=== PATIENT | male | born 1970 | race Caucasian/White ===

== ENCOUNTER 2016-05-03 23:39 | Emergency (ER) | payer OTHER ==
[~2016-05-03] VITALS: Ht 167.6 cm; Wt 108.9 kg
[~2016-05-03 23:39] MED LIST: (NONE) 12.5 MG-1 TAB PO; ATIVAN1 MG PO; BACTROBAN OINT.15 GM TOP; CHERATUSSIN AC118 ML PO; CODEINE PHOSPHA1 TAB PO; CYCLOBENZAPRINE10 M1 PO; CYCLOBENZAPRINE5 M2 PO; FLEXERIL10 MG PO; HYDROXYZINE PAM25 M2 PO; HYDROXYZINE PAM25 MG PO; IBUPROFEN800 M1 PO; IBUPROFEN800 MG PO; KETOROLAC TROME10 M1 PO; LEVSIN-SL0.125 MG SL; LEXAPRO10 M1 PO; LIORESAL 10MG T10 MG PO; LISINOPRIL-HCT1 EACH PO; LORAZEPAM0.5 M1 PO; LORAZEPAM1 MG PO; MEDROL DOSEPAK1 PAC PO; METFORMIN HCL500 MG PO; MOBIC 15MG15 MG PO; MOMETASONE0.05 MG/Ac NASB; MOTRIN 600 MG600 MG PO; NAPROSYN500 M1 PO; PERCOCET 325 MG1 TA2 PO; PREDNISONE10 M2 PO; SEROQUEL XR50 M1 PO; SEROQUEL XR50 MG PO; SEROQUEL50 MG PO; TRAMADOL HCL50 M1 PO; ULTRAM50 M1 PO; ZOFRAN ODT4 M1 SL; ZOFRAN4 M2 PO
--- NOTE | 2016-05-04 00:04 | ED GI/GU/ABDOMINAL COMPLAINT ---
History of Present Illness General Chief Complaint: Male Genitourinary Problems Stated Complaint: PATRICIO BURNING W/ URINATION X 2 DAYS Source: patient Exam Limitations: no limitations Vital Signs & Intake/Output Vital Signs & Intake/Output Vital Signs Date Time Temp Pulse Resp B/P Pulse O2 O2 Flow FiO2 Ox Delivery Rate 05/03 2350 99.5 78 18 120/60 97 Room Air ED Intake and Output 05/04 0000 05/03 1200 Intake Total Output Total Balance Patient 240 lb Weight Allergies Coded Allergies: pseudoephedrine (From SUDAFED) (DIZZY, ANXIETY 05/03/16) Triage Note: TRIAGE: PATIENT PATRICIO FROM HOME REPORTING PAIN W/ URINATION X2 DAYS. PAIN W/ URINATION IS 6/10. Triage Nurses Notes Reviewed? yes HPI: This patient is a 45-year-old male who is brought into the emergency department this evening by ambulance for evaluation of multiple complaints. The patient reported that he has been having, "pain in that back area, that back area where you go to the bathroom and sometimes into my right thigh where it gets numb." He also reported that he is feeling very anxious and stressed. He reported, "I usually take lorazepam at night, but did not get to take my dose tonight." He reported that all day he has been having 6 out of 10 burning pain, "where I pee. " The patient was unable to describe where he is feeling the pain. He reported that he has felt it, "all day." He reported that it is not just associated with urinating. He said that he, "may be has been going pee more often than normal. " He denied any urgency or blood in the urine. The patient denied any pain in his testicles. He also reported that he has been getting sharp pain over his sternum but she reported he currently has but it has been coming and going, "for some time." The patient denied any fevers, chills, abdominal pain, nausea, vomiting, or difficulty breathing. (ALEXIS ALMAZAN,NANY) Reconcile Medications Baclofen 10 MG TABLET 1 TAB PO TIDPRN PRN muscle spasm/strain Ibuprofen 600 MG TABLET 1 TAB PO Q6PRN PRN pain with food Lisinopril/Hydrochlorothiazide (Lisinopril-Hctz 20-12.5 MG Tab) 20 MG-12.5 MG TABLET 1 TAB PO DAILY HEART (Reported) Lorazepam 0.5 MG TABLET 2 TAB PO BID ANXIETY (Reported) Metformin Hydrochloride (Metformin HCl) 500 MG TAB 1 TAB PO DAILY DIABETES ( Reported) Phenazopyridine HCl (Pyridium) 200 MG TABLET 1 TAB PO TID dysuria Quetiapine Fumarate (Seroquel XR) 50 MG TAB.ER.24H 1 TAB PO QPM SLEEP/MENTAL HEALTH (Reported) (KENNEY RACHEL,SHARON) Past History Travel History Traveled to [place] past 21 day No Medical History Any Pertinent Medical History? 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 No (NANY ESPINOZA PA-C) Review of Systems Review of Systems Constitutional: Reports: no symptoms. EENTM: Reports: no symptoms. Respiratory: Reports: no symptoms. Cardiovascular: Reports: see HPI. GI: Reports: no symptoms. Genitourinary: Reports: see HPI. Musculoskeletal: Reports: see HPI. Skin: Reports: no symptoms. Neurological/Psychological: Reports: see HPI. All Other Systems: Reviewed and Negative (NANY ESPINOZA PA-C) Physical Exam Physical Exam Gastrointestinal: normal bowel sounds, soft, non-tender, no organomegaly, no rebound or guarding. no masses Comments: Well-developed well-nourished person who is anxious HEENT: Normal EENT exam, head normocephalic, moist mucous membranes Neck: Supple, no lymphadenopathy Back: Normal inspection. Normal gait. No CVA tenderness. No midline tenderness. Negative straight leg raise bilaterally Cardiovascular: Regular rate and rhythm with no murmurs, rubs, or gallops Respiratory: Chest nontender. No respiratory distress. Breath sounds clear to auscultation bilaterally Extremity: Normal and equal pulses. Neuro: Alert oriented x3, cranial nerves II through XII grossly intact. Skin: No appreciable rash on exposed skin, skin is warm and dry. Psych: Mood and affect is anxious (NANY ESPINOZA PA-C) Physical Exam Male Genitals: normal cremaster reflex, uncircumcised no evidence of erythema discharge rash Back: normal inspection, normal range of motion, muscle spasm (right gluteus), no vertebral tenderness Core Measures ACS in differential dx? No Severe Sepsis Present: No Septic Shock Present: No (KENNEY RACHEL,SHARON) Progress Differential Diagnosis: AAA, AMI, bowel obstruction, epididymitis, hernia, pancreatitis, prostatitis, PUD/GERD, pyelonephritis, STD, testicular torsion, ureterolithiasis, urinary retention, urethritis, UTI/pyelo, ACS Plan of Care: Orders Procedure Date/time Status CULTURE,URINE 05/04 2016 Active URINALYSIS 05/04 2016 Complete TROPONIN LEVEL 05/04 2016 Complete COMPREHENSIVE METABOLIC PANEL 05/04 2016 Complete CBC WITHOUT DIFFERENTIAL 05/04 2016 Complete EKG 05/04 2016 Active Current Medications Sig/Ang Start time Last Medication Dose Stop Time Status Admin Ketorolac 60 MG ONCE ONE 05/04 214 UNVr Tromethamine 05/04 215 (Toradol) Phenazopyridine HCl 200 MG ONCE ONE 05/04 214 UNVr (Pyridium) 05/04 215 Laboratory Tests 05/04/16 0029: Anion Gap 13, Estimated GFR > 60, BUN/Creatinine Ratio 11.0, Glucose 124 H, Calcium 9.4, Total Bilirubin 1.1, AST 20, ALT 43, Alkaline Phosphatase 58, Troponin I < 0.01, Total Protein 7.1, Albumin 4.1, Globulin 3.0, Albumin/ Globulin Ratio 1.4, CBC w Diff NO MAN DIFF REQ, RBC 5.31, MCV 83.0, MCH 28.1, RDW 13.2, MPV 7.7, Gran % 68.3, Lymphocytes % 22.5, Monocytes % 6.6, Eosinophils % 2.1, Basophils % 0.5, Absolute Granulocytes 6.7 H, Absolute Lymphocytes 2.2, Absolute Monocytes 0.6, Absolute Eosinophils 0.2, Absolute Basophils 0, PUBS MCHC 33.9 05/04/16 0020: Urine Color STRAW, Urine Clarity CLEAR, Urine pH 6.0, Ur Specific [place] <= 1.005, Urine Protein NEG, Urine Ketones NEG, Urine Nitrite NEG, Urine Bilirubin NEG, Urine Urobilinogen 0.2, Ur Leukocyte Esterase NEG, Ur Microscopic EXAM NOT REQUIRED, Urine Hemoglobin NEG, Urine Glucose NEG Microbiology 05/04 19 URINE ROUT: Urine Culture - RECD Initial ED EKG: normal axis, normal intervals, normal sinus rhythm, no ST T wave changes, 74 BPM Hand-Off Endorsed To: SHARON MOULTON MD Endorsed Time: 57 Pending: labs (ALEXIS ALMAZAN,NANY) Departure Departure Condition: Stable Departure Forms: Customer Survey General Discharge Information (NANY ESPINOZA PA-C) Departure Time of Disposition: 202 Disposition: HOME OR SELF CARE Clinical Impression Primary Impression: Pyriformis syndrome Qualifiers: Laterality: right Qualified Code: G57.01 - Lesion of sciatic nerve, right lower limb Secondary Impressions: Urethritis, nonspecific Referrals: SAMUEL RACHEL,MICHELE Call for urology follow up ARLIN RACHEL,KELSIE Russ (PCP/Family) Prescriptions: Current Visit Scripts Baclofen 1 TAB PO TIDPRN PRN muscle spasm/strain #30 TAB Ibuprofen 1 TAB PO Q6PRN PRN pain #50 TAB with food Phenazopyridine HCl (Pyridium) 1 TAB PO TID #9 TAB PA/DEEP FAT COOK FRY Co-Sign Statement Statement: ED Attending supervision documentation- x I saw and evaluated the patient. I have also reviewed all the pertinent lab results and diagnostic results. I agree with the findings and the plan of care as documented in the PA's/DEEP FAT COOK FRY's documentation. [] I have reviewed the ED Record and agree with the PA's/DEEP FAT COOK FRY's documentation. [] Additions or exceptions (if any) to the PAs/DEEP FAT COOK FRY's note and plan are summarized below: [] (KENNEY RACHEL,SHARON)
[2016-05-04 00:43] LABS: ABSOLUTE BASOPHIL COUNT 0 /CUMM (0.0-0.2); ABSOLUTE EOSINOPHIL COUNT 0.2 /CUMM (0.0-0.7); ABSOLUTE GRANULOCYTE CT 6.7 /CUMM (1.4-6.5); ABSOLUTE LYMPH COUNT 2.2 /CUMM (1.2-3.4); ABSOLUTE MONOCYTE COUNT 0.6 /CUMM (0.10-0.60); BASOPHIL % 0.5 % (0.0-2.0); EOSINOPHIL % 2.1 % (0-5); GRANULOCYTE % 68.3 % (42.2-75.2); MEAN CORPUSCULAR HGB 28.1 PG (27.0-31.0); MEAN CORPUSCULAR HGB CONC 33.9 G/DL (33.0-37.0); MEAN PLATELET VOLUME 7.7 FL (7.4-10.4); PLATELET COUNT 259 /CUMM (130-400); RBC DISTRIBUTION WIDTH 13.2 % (11.5-14.5); RED BLOOD CELL CT 5.31 /CUMM (4.70-6.10); WHITE BLOOD CELL COUNT 9.8 /CUMM (4.8-10.8)
[2016-05-04] MEDS ORDERED: IBUPROFEN600 M1 PO (02:06)
[2016-05-04] MEDS ORDERED: PYRIDIUM200 M1 PO (02:06)
[2016-05-04] MEDS ORDERED: BACLOFEN10 M1 PO (02:06)
[2016-05-04 02:08] VITALS: BP 136/69
== END 2016-05-04 02:45 ==
LOC: ERH 23:39
PROVIDERS: Physician Assistant
DX: G57.01 Lesion of sciatic nerve, right lower limb (principal); N34.2 Other urethritis; R07.9 Chest pain, unspecified
CPT/HCPCS: 81003; 87086; 93005; 93010; J1885

== ENCOUNTER 2016-05-16 00:51 | Emergency (ER) | payer OTHER ==
[~2016-05-16] VITALS: Ht 167.6 cm; Wt 108.9 kg
[~2016-05-16 00:51] MED LIST changes: +BACLOFEN10 M1 PO; +IBUPROFEN600 M1 PO; +PYRIDIUM200 M1 PO
--- NOTE | 2016-05-16 01:13 | ED GENERAL ADULT ---
History of Present Illness General Chief Complaint: abdominal pain, back pain, anxiety, depression Stated Complaint: BIBA ABD PAIN, ANXIETY, BACK PAIN, DEPREESION Source: patient Exam Limitations: no limitations Allergies Coded Allergies: pseudoephedrine (From SUDAFED) (DIZZY, ANXIETY 05/03/16) Reconcile Medications Baclofen 10 MG TABLET 1 TAB PO TIDPRN PRN muscle spasm/strain Hydroxyzine Pamoate 25 MG CAPSULE 1 CAP PO TID ANXIETY (Reported) Ibuprofen 600 MG TABLET 1 TAB PO Q6PRN PRN pain with food Lisinopril/Hydrochlorothiazide (Lisinopril-Hctz 20-12.5 MG Tab) 20 MG-12.5 MG TABLET 1 TAB PO DAILY HEART (Reported) Lorazepam 0.5 MG TABLET 2 TAB PO BID ANXIETY (Reported) Metformin Hydrochloride (Metformin HCl) 500 MG TAB 1 TAB PO DAILY DIABETES ( Reported) Phenazopyridine HCl (Pyridium) 200 MG TABLET 1 TAB PO TID dysuria Quetiapine Fumarate (Seroquel XR) 50 MG TAB.ER.24H 1 TAB PO QPM SLEEP/MENTAL HEALTH (Reported) Triage Note: PT BIBA 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 STATES HURT BACK 2 DAYS AGO HELPING A FRIEND MOVE A MICROWAVE. LUQ PAIN, TO SIDE/RIB AREA, STARTED 90 MINS AGO. STATES HE HAS HAD THIS PAIN IN THE PAST AND IT IS FROM HIS ANXIETY. DENIES SI. O2 SAT 96% ON RA. PT STATES "I'M REALLY DEPRESSED AND I WANT TO TALK TO SOMEBODY" Triage Nurses Notes Reviewed? yes Onset: back pain since last week, abdominal pain and anxiety since this evening Duration: waxing and waning Timing: multiple episodes today Severity: mild, currently 3/10 back pain, abdominal pain goes up to 7/10 but currently no pain Severity Numbers: 3 Modifying Factors: Improves With: immobilization, medication. Associated Symptoms: back pain, lower chest and epigastric pain HPI: Patient is a 46 year old gentleman who came to the ED due to a recent onset abdominal pain. Patient reports that this evening he went to visit a few friends , and he was upset as some of them told him that they don't want to see him. He got very angry and frustrated, felt anxious and depressed, to the point that he was going to cry. In the evening after he had supper he started to have left upper quadrant abdominal pain which was sharp 7 out of 10 and intermittent. Pain was also migrating to the right upper quadrant as well as his left arm and hand. Patient also reports nausea but has not vomited. A week ago patient helped moving a microwave and felt pain on the back and also felt numb on the right leg. Pain has been intermittent with severity of 3 out of 10, currently denies any numbness. Patient feels depressed especially at nights when he reviews the arguments during the day especially with the friends that don't want to see him. It makes him very sad and anxious. He takes his medications regularly for anxiety and depression and currently denies being suicidal or homicidal. (PATTI RACHEL,KAYLIE) Vital Signs & Intake/Output Vital Signs & Intake/Output Vital Signs Date Time Temp Pulse Resp B/P Pulse O2 O2 Flow FiO2 Ox Delivery Rate 05/16 1141 69 142/77 05/16 1136 97.3 69 15 142/77 94 Room Air Room Air 05/16 1026 97.0 70 18 120/73 96 Room Air 05/16 0833 97.0 64 18 110/74 98 Room Air 05/16 0809 Room Air Room Air 05/16 0538 97.4 80 18 133/69 95 Room Air 05/16 0113 96 05/16 0054 96.8 95 20 145/70 96 Room Air Past History Travel History Traveled to [place] past 21 day No Medical History Any Pertinent Medical History? 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 No (DIANA RACHEL,SEBASTIEN Raygoza) Review of Systems Review of Systems Constitutional: Denies: chills, fever, weakness. EENTM: Reports: nasal congestion. Respiratory: Reports: cough, short of breath (SOB when gets anxious). Denies: sputum production. Cardiovascular: Reports: palpitations (with anxiety). Denies: chest pain, syncope. GI: Reports: abdominal pain, bloody stool (two times saw streaks of blood). Denies: diarrhea, changes in stool. Genitourinary: Denies: discharge, dysuria, pain. Musculoskeletal: Reports: back pain. Denies: joint pain, joint swelling, muscle pain. Skin: Reports: no symptoms. Neurological/Psychological: Reports: anxiety, depressed, headache. Denies: numbness, weakness. Hematologic/Endocrine: Denies: bruising, bleeding, polyuria, polydipsia. (KAYLIE ARMSTRONG MD) Review of Systems Immunologic/Allergic: Reports: no symptoms. All Other Systems: Reviewed and Negative (SHARON MOULTON MD) Physical Exam Physical Exam General Appearance: well developed/nourished, no apparent distress, alert, awake , anxious Head: atraumatic, normal appearance Eyes: Bilateral: PERRL, EOMI. Ears, Nose, Throat: normal pharynx, normal ENT inspection, hearing grossly normal Neck: normal inspection, supple, full range of motion Respiratory: normal breath sounds, chest non-tender, no respiratory distress, quiet respiration, lungs clear Cardiovascular: regular rate/rhythm, tachycardia Peripheral Pulses: 2+ radial (R), 2+ radial (L) Gastrointestinal: normal bowel sounds, soft, non-tender, distention, obese Back: normal inspection, normal range of motion, no vertebral tenderness, tenderness on the sacral area at midline Extremities: normal inspection, normal capillary refill, normal range of motion, no edema Neurologic/Psych: no motor/sensory deficits, awake, alert, oriented x 3, normal gait, mood is depressed but normal affect Skin: rash, erythematous papules on the scalp above the left ear, extending to the left forehead Lymphatic: no anterior cervical kathrine Core Measures ACS in differential dx? No CVA/TIA Diagnosis: No Severe Sepsis Present: No Septic Shock Present: No (KAYLIE ARMSTRONG MD) Progress Differential Diagnoses I considered the following diagnoses in my evaluation of the patient: [ depression, anxiety, bipolar disorder] (KAYLIE ARMSTRONG MD) Differential Diagnoses I considered the following diagnoses in my evaluation of the patient: depression , anxiety, bipolar disorder Plan of Care: Orders Procedure Date/time Status Regular Diet 05/16 B Active Add-on Test (ER Only) 05/16 0727 Active ED CRISIS PSYCH CONSULT 05/16 0250 Active URINE DRUGS OF ABUSE 05/16 0113 Complete URINALYSIS 05/16 0108 Complete Laboratory Tests 05/16/16 0113: Urine Opiates Screen < 100.00, Methadone Screen < 40, Barbiturate Screen < 60, Ur Phencyclidine Scrn < 6.00, Amphetamines Screen < 100, U Benzodiazepines Scrn < 85, Urine Cocaine Screen < 50, Urine Cannabis Screen < 5.00, Urine Color YEL, Urine Clarity CLEAR, Urine pH 6.0, Ur Specific [place] 1.020, Urine Protein NEG, Urine Ketones NEG, Urine Nitrite NEG, Urine Bilirubin NEG, Urine Urobilinogen 0.2, Ur Leukocyte Esterase NEG, Ur Microscopic EXAM NOT REQUIRED, Urine Hemoglobin NEG, Urine Glucose NEG Comments: 05/16/2016 7:26:16 AM patient signed out to Dr. Moulton at shift change lead. (DIANA RACHEL,SEBASTIEN Raygoza) Differential Diagnoses I considered the following diagnoses in my evaluation of the patient: Initial ED EKG: none (SHARON MOULTON MD) Departure Departure Referrals: ARLIN RACHEL,KELSIE Russ (PCP/Family) Departure Forms: General Discharge Information (PATTI RACHEL,KAYLIE) Resident Co-Sign Statement Statement: ED Attending supervision documentation- [x] I saw and evaluated the patient. I have also reviewed all the pertinent lab results and diagnostic results. I agree with the findings and the plan of care as documented in the Resident's documentation. [] I have reviewed the ED Record and agree with the Resident's documentation. [] Additions or exceptions (if any) to the Resident's note and plan are summarized below: [] (DIANA RACHEL,SEBASTIEN Raygoza) Departure Time of Disposition: 1100 Disposition: HOME OR SELF CARE Condition: Stable Clinical Impression Primary Impression: Depression Qualifiers: Depression Type: unspecified Qualified Code: F32.9 - Major depressive disorder, single episode, unspecified Additional Instructions: Follow up with the recommendations of the die lay out worker. (SHARON MOULTON MD) Critical Care Note Critical Care Note Critical Care Time: non-applicable (SHARON MOULTON MD) Time of Disposition: 1100 Disposition: HOME OR SELF CARE Condition: Stable Clinical Impression Primary Impression: Depression Qualifiers: Depression Type: unspecified Qualified Code: F32.9 - Major depressive disorder, single episode, unspecified Additional Instructions: Follow up with the recommendations of the die lay out worker. Departure Forms: General Discharge Information (SHARON MOULTON MD) Critical Care Note Critical Care Note Critical Care Time: non-applicable (SHARON MOULTON MD)
[2016-05-16] MEDS ORDERED: HYDROXYZINE PAM25 M2 PO (01:26)
[2016-05-16 11:41] VITALS: BP 142/77
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
== END 2016-05-16 12:11 ==
LOC: ERH 00:51
DX: F32.9 Major depressive disorder, single episode, unspecified (principal)
CPT/HCPCS: 80307; 81003; 96372; G0463; J1885

== ENCOUNTER 2016-06-13 13:47 | Emergency (ER) | payer OTHER ==
--- NOTE | 2016-06-13 15:11 | ED GENERAL ADULT ---
History of Present Illness General Chief Complaint: Low Back Pain/Injury Stated Complaint: LOWER BACK PAIN, COUGH Source: patient Exam Limitations: no limitations Vital Signs & Intake/Output Vital Signs & Intake/Output Vital Signs Date Time Temp Pulse Resp B/P Pulse O2 O2 Flow FiO2 Ox Delivery Rate 06/13 1710 97.3 89 20 95 Room Air 06/13 1708 136/92 06/13 1352 97.8 98 20 149/99 97 Room Air Allergies Coded Allergies: pseudoephedrine (From SUDAFED) (DIZZY, ANXIETY 05/03/16) Triage Note: PT PRESENTS TO ER C/O OF LOWER BACK PAIN. PT STATES HE HAS CHRONIC LOW BACK PAIN BUT TODAY PAIN IS WORSE. PT ALSO C/O OF INTERMITTEN SOB WITH EXERTION. Triage Nurses Notes Reviewed? yes HPI: This patient is a 46-year-old male who presented to the emergency department today for evaluation of back pain and cough. The patient reported that he has chronic back pain, but noticed that yesterday his pain was getting worse. He reported that it starts in the right buttock region and sometimes radiates down the back of his right thigh. The pain except an 8 out of 10, is throbbing, and worse when he is sitting. The patient denied any numbness or tingling in his extremities. He reported that he has been feeling constipated recently. The patient reported that he has been having shortness of breath with exertion over the last couple of days. He does have a cough. The patient denied any chest pain. He reported that yesterday he was feeling slightly nauseous. No vomiting or abdominal pain. The patient denied any fevers or chills. (ALEXIS ALMAZAN,NANY) Reconcile Medications Baclofen 10 MG TABLET 1 TAB PO TIDPRN PRN muscle spasm/strain Cyclobenzaprine HCl 5 MG TABLET 1 TAB PO TIDPRN PRN muscle relaxation Hydroxyzine Pamoate 25 MG CAPSULE 1 CAP PO TID ANXIETY (Reported) Ibuprofen 600 MG TABLET 1 TAB PO Q6PRN PRN pain with food Lisinopril/Hydrochlorothiazide (Lisinopril-Hctz 20-12.5 MG Tab) 20 MG-12.5 MG TABLET 1 TAB PO DAILY HEART (Reported) Lorazepam 0.5 MG TABLET 2 TAB PO BID ANXIETY (Reported) Metformin Hydrochloride (Metformin HCl) 500 MG TAB 1 TAB PO DAILY DIABETES ( Reported) Phenazopyridine HCl (Pyridium) 200 MG TABLET 1 TAB PO TID dysuria Quetiapine Fumarate (Seroquel XR) 50 MG TAB.ER.24H 2 TAB PO QPM SLEEP/MENTAL HEALTH (Reported) (BRIAN RACHEL,CAMDEN Rust) Past History Travel History Traveled to [place] past 21 day No Medical History Any Pertinent Medical History? 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 No (NANY ESPINOZA PA-C) Review of Systems Review of Systems Constitutional: Reports: no symptoms. EENTM: Reports: no symptoms. Respiratory: Reports: see HPI. Cardiovascular: Reports: no symptoms. GI: Reports: see HPI. Genitourinary: Reports: no symptoms. Musculoskeletal: Reports: see HPI. Skin: Reports: no symptoms. Neurological/Psychological: Reports: no symptoms. All Other Systems: Reviewed and Negative (NANY ESPINOZA PA-C) Physical Exam Physical Exam General Appearance: well developed/nourished, no apparent distress, alert, awake Comments: Well-developed well-nourished person in no acute distress HEENT: Normal EENT exam, moist mucous membranes PERRLA bilaterally. Bilateral TM nonerythematous and nonbulging. No pharyngeal injection Neck: Supple, no lymphadenopathy Back: Normal gait. Normal inspection with no CVA tenderness. No midline tenderness Cardiovascular: Regular rate and rhythm with no murmurs, rubs, or gallops Respiratory: Chest nontender. No respiratory distress. Breath sounds clear to auscultation bilaterally with no wheezes, rales, rhonchi Extremity: Normal and equal pulses Neuro: Alert oriented x3, motor sensory normal, cranial nerves II through XII grossly intact. Skin: No appreciable rash on exposed skin, skin is warm and dry. Psych: Mood and affect is normal, memory and judgment is normal. Core Measures ACS in differential dx? Yes CVA/TIA Diagnosis: No Severe Sepsis Present: No Septic Shock Present: No (NANY ESPINOZA PA-C) Progress Differential Diagnoses I considered the following diagnoses in my evaluation of the patient: [Chronic back pain, medication seeking, sciatica, rectal abscess, constipation, hemorrhoids, ureterolithiasis, hydronephrosis, ACS, PE, pneumonia, bronchitis, asthma, viral syndrome] Plan of Care: Orders Procedure Date/time Status URINALYSIS 06/13 1443 Complete TROPONIN LEVEL 06/13 1443 Complete MAGNESIUM 06/13 1443 Complete COMPREHENSIVE METABOLIC PANEL 06/13 1443 Complete CBC WITHOUT DIFFERENTIAL 06/13 1443 Complete EKG 06/13 1443 Active Laboratory Tests 06/13/16 1515: Anion Gap 10, Estimated GFR > 60, BUN/Creatinine Ratio 11.3, Glucose 101 H, Calcium 9.1, Magnesium 1.9, Total Bilirubin 1.3, AST 24, ALT 48, Alkaline Phosphatase 69, Troponin I < 0.01, Total Protein 7.6, Albumin 4.3, Globulin 3.3, Albumin/Globulin Ratio 1.3, CBC w Diff NO MAN DIFF REQ, RBC 5.53, MCV 82.8, MCH 27.8, RDW 13.2, MPV 7.4, Gran % 72.5, Lymphocytes % 20.8, Monocytes % 4.5, Eosinophils % 1.8, Basophils % 0.4, Absolute Granulocytes 6.2, Absolute Lymphocytes 1.8, Absolute Monocytes 0.4, Absolute Eosinophils 0.2, Absolute Basophils 0, PUBS MCHC 33.5, Urine Color YEL, Urine Clarity CLEAR, Urine pH 7.0, Ur Specific [place] 1.010, Urine Protein NEG, Urine Ketones NEG, Urine Nitrite NEG, Urine Bilirubin NEG, Urine Urobilinogen 0.2, Ur Leukocyte Esterase NEG, Ur Microscopic EXAM NOT REQUIRED, Urine Hemoglobin NEG, Urine Glucose NEG Diagnostic Imaging: Viewed by Me: Radiology Read. Discussed w/RAD: Radiology Read. Radiology Impression: PATIENT: ANDIE MARSHALL PRESENT AGE: 46 PATIENT ACCOUNT NO: [id number] : 68 LOCATION: [facility] ORDERING PHYSICIAN: NANY ESPINOZA PA-C SERVICE DATE: 06/13/16-144 EXAM TYPE: RAD - XRY-CHEST XRAY, PA AND LATERAL EXAMINATION: XR CHEST CLINICAL INFORMATION: Shortness of breath. Evaluate for cardiomegaly or pneumonia. COMPARISON: Several prior chest x-rays, most recent of which is dated 04/05/2016. TECHNIQUE: 2 views of the chest were obtained. FINDINGS: The cardiomediastinal silhouette is borderline enlarged, unchanged. Lungs bilaterally are symmetrically expanded. There is minimal blunting of the posterior CP angles, unchanged compared to prior studies dating back to at least 09/21/2015, consistent with mild chronic pleural thickening. No focal pneumonia, pulmonary edema or pneumothorax is seen. Bony structures are unremarkable. IMPRESSION: 1. Borderline cardiomegaly. 2. No focal pneumonia. DICTATED BY: DAWSON JOHNS MD DATE/TIME DICTATED:06/13/161512 PLANT PROPAGATOR:RAFA DATE/TIME TRANSCRIBED:06/13/161512 CONFIDENTIAL, DO NOT COPY WITHOUT APPROPRIATE AUTHORIZATION. <Electronically signed in Other Vendor System> SIGNED BY: DAWSON JOHNS MD 06/13/16 6030 Initial ED EKG: normal axis, normal intervals, no ST T wave changes, 84 BPM Comments: 06/13/2016 3:17:42 PM: Brown stool heme-negative. (NANY ESPINOZA PA-C) Departure Departure Disposition: HOME OR SELF CARE Condition: Stable Clinical Impression Primary Impression: Shortness of breath Secondary Impressions: Sciatic leg pain Referrals: ARLIN RACHEL,KELSIE Russ (PCP/Family) Additional Instructions: Take your previously prescribed naproxen as prescribed for pain and inflammation. Take Flexeril as prescribed for muscle relaxation. Gentle stretching. These follow-up with your primary care physician. Return for any worsening symptoms or concerns. Departure Forms: Customer Survey General Discharge Information Prescriptions: Current Visit Scripts Cyclobenzaprine HCl 1 TAB PO TIDPRN PRN muscle relaxation #12 TAB (NANY ESPINOZA PA-C) PA/KEYBOARD OPERATOR Co-Sign Statement Statement: ED Attending supervision documentation- [] I saw and evaluated the patient. I have also reviewed all the pertinent lab results and diagnostic results. I agree with the findings and the plan of care as documented in the PA's/KEYBOARD OPERATOR's documentation. [X] I have reviewed the ED Record and agree with the PA's/KEYBOARD OPERATOR's documentation. [] Additions or exceptions (if any) to the PAs/KEYBOARD OPERATOR's note and plan are summarized below: [] (BRIAN RACHEL,CAMDEN Rust) Critical Care Note Critical Care Note Critical Care Time: non-applicable (ALEXIS ALMAZAN,NANY)
--- NOTE | 2016-06-13 15:20 | RADIOLOGY REPORT ---
EXAMINATION: XR CHEST CLINICAL INFORMATION: Shortness of breath. Evaluate for cardiomegaly or pneumonia. COMPARISON: Several prior chest x-rays, most recent of which is dated 04/05/2016. TECHNIQUE: 2 views of the chest were obtained. FINDINGS: The cardiomediastinal silhouette is borderline enlarged, unchanged. Lungs bilaterally are symmetrically expanded. There is minimal blunting of the posterior CP angles, unchanged compared to prior studies dating back to at least 09/21/2015, consistent with mild chronic pleural thickening. No focal pneumonia, pulmonary edema or pneumothorax is seen. Bony structures are unremarkable. IMPRESSION: 1. Borderline cardiomegaly. 2. No focal pneumonia.
[2016-06-13 15:49] LABS: ABSOLUTE BASOPHIL COUNT 0 /CUMM (0.0-0.2); ABSOLUTE EOSINOPHIL COUNT 0.2 /CUMM (0.0-0.7); ABSOLUTE GRANULOCYTE CT 6.2 /CUMM (1.4-6.5); ABSOLUTE LYMPH COUNT 1.8 /CUMM (1.2-3.4); ABSOLUTE MONOCYTE COUNT 0.4 /CUMM (0.10-0.60); BASOPHIL % 0.4 % (0.0-2.0); EOSINOPHIL % 1.8 % (0-5); GRANULOCYTE % 72.5 % (42.2-75.2); HEMATOCRIT 45.8 % (42-52); MEAN CORPUSCULAR HGB 27.8 PG (27.0-31.0); MEAN CORPUSCULAR HGB CONC 33.5 G/DL (33.0-37.0); MEAN CORPUSCULAR VOLUME 82.8 FL (80.0-94.0); MEAN PLATELET VOLUME 7.4 FL (7.4-10.4); PLATELET COUNT 228 /CUMM (130-400); RBC DISTRIBUTION WIDTH 13.2 % (11.5-14.5); RED BLOOD CELL CT 5.53 /CUMM (4.70-6.10); WHITE BLOOD CELL COUNT 8.6 /CUMM (4.8-10.8)
[2016-06-13] MEDS ORDERED: CYCLOBENZAPRINE5 M2 PO (17:03)
[2016-06-13 17:08] VITALS: BP 136/92
== END 2016-06-13 17:08 ==
LOC: ERH 13:47
PROVIDERS: Physician Assistant
DX: M54.31 Sciatica, right side (principal); R06.02 Shortness of breath
CPT/HCPCS: 81003; 93005; 93010; 96372; J1885